=== PATIENT | male | born 1955 | race Caucasian/White ===

== ENCOUNTER → 2016-10-22 | Outpatient (REF) | payer BC ==
[~2016-10-22] MED LIST: ADVA115A INH; B COTAB3 PO; CALC-195 PO; D 202000 PO; DOCQ100C PO; GLUC500T53 PO; IBUP-1022 PO; TEST1GEL6 TD; TRAM50TA2 PO; XANA1TAB PO; ZINC25TA PO; ZINC30CA PO; ZOLO100T PO
[2016-10-25 00:06] LABS: Lyme Disease IgG/IgM Antibodie <0.91 ISR (0.00-0.90); Lyme Disease IgM Ab Quantitati <0.80 index (0.00-0.79)
== END ==
LOC: M LAB REF 17:20
PROVIDERS: ATTEND Nurse Practitioner Family
DX: F41.1 Generalized anxiety disorder (principal); R53.83 Other fatigue

== ENCOUNTER → 2017-08-26 | Outpatient (REF) | payer BC ==
[2017-08-26 20:09] LABS: TESTOSTERONE 394 NG/DL (241-827)
== END ==
LOC: M LAB REF 18:24
DX: E29.1 Testicular hypofunction (principal)
CPT/HCPCS: 84403

== ENCOUNTER 2018-07-12 13:24 | Outpatient (RCR) | payer MEDICARE ==
[~2018-07-12 13:24] MED LIST changes: -DOCQ100C PO; +DOCQ100C5 PO
== END 2018-07-25 ==
LOC: M OT 13:24
PROVIDERS: ATTEND Internal Medicine
DX: F80.9 Developmental disorder of speech and language, unspecified (principal)

== ENCOUNTER 2018-08-03 13:52 | Emergency (ER) | payer MEDICARE ==
--- NOTE | 2018-08-03 16:25 | REP ---
The brain without contrast: History: Dizziness. Comparison study September 20, 2015. Findings: Bone window settings demonstrate cervical spine fusion hardware. Bony calvarium is intact. Visualized paranasal sinuses are clear. There is a large old infarction with encephalomalacia in the distribution of the left middle cerebral artery. There is exvacuo enlargement of the lateral ventricle on the left. These changes are new when compared with the 2016 study but appear old nevertheless. No acute infarction is seen. No intracranial hemorrhage is observed. There is diffuse cerebral atrophy. No intraorbital abnormality is seen. 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 No acute infarct or hemorrhage is seen. No mass or extra-axial fluid collection noted. Electronically Signed by Govind Velasquez MD 08/03/2018 08:35 P
[2018-08-03 17:07] VITALS: BP 120/73
== END 2018-08-03 17:08 | disposition home or self-care (01) ==
LOC: M ED 13:52
DX: R42 Dizziness and giddiness (principal); G47.30 Sleep apnea, unspecified; Z86.73 Personal history of transient ischemic attack (TIA), and cerebral infarction without residual deficits; F10.20 Alcohol dependence, uncomplicated; J44.9 Chronic obstructive pulmonary disease, unspecified; Z87.891 Personal history of nicotine dependence; Z79.899 Other long term (current) drug therapy

== ENCOUNTER → 2018-08-24 | Outpatient (RCR) | payer MEDICARE ==
--- NOTE | 2018-07-27 17:50 | NUR ---
Speech-language assessment complete. ST recommended 2 x weekly. This patient's speech and language skills were assessed on 07/27/18. He presents with a severe communication impairment which impacts his receptive and expressive language skills. The clinician had limited access to any medical records or information about this patient was he was alone during the session. Based on the results of this assessment, he presents with apraxia of speech and expressive/receptive aphasia which significantly impacts his ability to communicate in his daily living environment. The clinician recommends speech therapy 2 x weekly for at least 4 weeks to focus on functional communication. Addendum: 07/27/18 at 1751 by CHANDRAKANT VERGARA Amended: Links added.
--- NOTE | 2018-08-03 14:47 | NUR ---
This patient was not feeling well during occupational therapy. The OT contacted ST to help w/communication. He was complaining of stomach pain, back pain, and leg pain. With the use of picture communication implemented by ST, the patient was able to communicate that he was having intermittent dizziness and blurred vision. OT took patient's BP and it was low. ST accompanied patient to ED for further evaluation. Patient's was contacted by the therapy department and patient's medical history on file with the therapy department was provided to ED. Addendum: 08/03/18 at 1456 by CHANDRAKANT VERGARA Amended: Links added.
--- NOTE | 2018-08-10 16:44 | NUR ---
Patient presents with mild oropharyngeal dysphagia characterized by decreased coordination of oral motor movements and effortful swallow. Patient often had to swallow 2 times to clear oral residue. However, there were no signs of aspiration/penetration during PO intake on any consistency. ST provided pt w/safe feeding strategies and recommends a regular diet w/thin liquids. ST recommends therapy for dysphagia management to maximize bolus control and patient safety during PO intake. Addendum: 08/10/18 at 1645 by CHANDRAKANT VERGARA Amended: Links added.
== END ==
LOC: M OT 07-27 12:54 → M PT 08-05 14:11 → M OT 08-10 13:00 → M ST 12:46
PROVIDERS: ATTEND Internal Medicine
DX: I69.891 Dysphagia following other cerebrovascular disease (principal)

== ENCOUNTER 2018-09-23 12:47 | Outpatient (RCR) | payer MEDICARE | END 2018-09-24 | LOC: M ST 12:47 | PROVIDERS: ATTEND Internal Medicine | DX: I63.9 Cerebral infarction, unspecified (principal) ==

== ENCOUNTER → 2018-10-09 | Outpatient (REF) | payer MEDICARE ==
[~2018-10-09] MED LIST changes: +ATOR80TA59 PO; +BACL10TA2 PO; +CIPR-249 PO; +ECOT81TA5 PO; +GABA-843 PO; +LEVA1TAB2 PO; +METO1TAB87 PO; +PANT40TA3 PO
== END ==
LOC: M LAB REF 17:07
PROVIDERS: ATTEND Physician Assistant Medical
DX: N39.0 Urinary tract infection, site not specified (principal)

== ENCOUNTER 2018-10-12 11:56 | Emergency (ER) | payer MEDICARE ==
[~2018-10-12] VITALS: Ht 167.6 cm; Wt 81.8 kg
[~2018-10-12 11:56] MED LIST changes: -ATOR80TA59 PO; -BACL10TA2 PO; -CIPR-249 PO; -ECOT81TA5 PO; -GABA-843 PO; -LEVA1TAB2 PO; -METO1TAB87 PO; -PANT40TA3 PO
[2018-10-12] MEDS ORDERED: GABA-843 PO (12:08)
[2018-10-12] MEDS ORDERED: PANT40TA3 PO (12:08)
[2018-10-12] MEDS ORDERED: ATOR80TA59 PO (12:08)
[2018-10-12] MEDS ORDERED: CIPR-249 PO (12:08)
[2018-10-12] MEDS ORDERED: ECOT81TA5 PO (12:08)
[2018-10-12] MEDS ORDERED: BACL10TA2 PO (12:08)
[2018-10-12] MEDS ORDERED: METO1TAB87 PO (12:08)
[2018-10-12 12:52] LABS: BASO # 0.1 10^3/uL (0.0-0.2); BASO % 0.7 % (0.0-1.0); EOS # 0.3 10^3/uL (0.0-0.50); EOS % 3.9 % (0.0-3.0); HEMOGLOBIN 13.6 g/dl (13.5-17.5); LYMPH # 1.7 10^3/uL (1.5-4.5); LYMPH % 22.9 % (24.0-44.0); MEAN CORPUSCULAR HEMOGLOBIN 29.6 pg (27.0-33.0); MEAN CORPUSCULAR HGB CONC 32.4 g/dl (32.0-36.5); MEAN CORPUSCULAR VOLUME 91.3 fl (80.0-96.0); MONO # 0.7 10^3/uL (0.0-0.8); MONO % 9.3 % (0.0-5.0); NEUTROPHILS # 4.7 10^3/uL (1.8-7.7); NEUTROPHILS % 62.9 % (36.0-66.0); PLATELET COUNT, AUTOMATED 249 10^3/uL (150-450); WHITE BLOOD COUNT 7.4 10^3/uL (4.0-10.0)
[2018-10-12 13:21] LABS: BLOOD UREA NITROGEN 20 MG/DL (7-18); CALCIUM LEVEL 9.3 MG/DL (8.8-10.2); CARBON DIOXIDE LEVEL 29 MEQ/L (21-32); CHLORIDE LEVEL 108 MEQ/L (98-107); CREATININE FOR GFR 0.75 MG/DL (0.70-1.30); GLOMERULAR FILTRATION RATE > 60.0 (>49); GLUCOSE, FASTING 103 MG/DL (70-100); POTASSIUM SERUM 5.3 MEQ/L (3.5-5.1); SODIUM LEVEL 141 MEQ/L (136-145)
--- NOTE | 2018-10-12 14:52 | REP ---
Scrotal ultrasound: The right testis measures 4.1 x 2.4 x 2.5 cm. The left testis measures 3.6 x 2.4-0.0 cm. There are no testicular masses. There is vascular flow in both testes. The Doppler resistive index of the parenchymal arteries in the right testis is 0.4 a.m., left testis 0.55. The right epididymal head measures 6.1 mm, and is normal size and otherwise unremarkable. The left epididymal head and left epididymis are enlarged measuring up to 31.5 mm. The with color Doppler assessment there is increased vascular flow in the left epididymis. There are small bilateral hydroceles. Impression: The left epididymis is enlarged with increased vascular flow, compatible with left epididymitis. There are small bilateral hydroceles. There are no testicular masses. There is vascular flow in both testes. Electronically Signed by Butch Riley MD 10/12/2018 02:43 P
[2018-10-12] MEDS ORDERED: LEVA1TAB2 PO (15:43)
[2018-10-12] MEDS ORDERED: LevoFLOXacin 500 MG TABLET PO ONE (15:45)
[2018-10-12 15:55] VITALS: BP 134/70
== END 2018-10-12 15:55 | disposition home or self-care (01) ==
LOC: M ED 14:13
DX: N39.0 Urinary tract infection, site not specified (principal); N45.1 Epididymitis; Z86.73 Personal history of transient ischemic attack (TIA), and cerebral infarction without residual deficits; Z87.440 Personal history of urinary (tract) infections; Z87.891 Personal history of nicotine dependence; Z79.82 Long term (current) use of aspirin; Z79.899 Other long term (current) drug therapy

== ENCOUNTER 2018-10-20 12:47 | Outpatient (RCR) | payer MEDICARE ==
[~2018-10-20 12:47] MED LIST changes: +ATOR80TA59 PO; +BACL10TA2 PO; +CIPR-249 PO; +ECOT81TA5 PO; +GABA-843 PO; +LEVA1TAB2 PO; +METO1TAB87 PO; +PANT40TA3 PO
== END 2018-10-24 | disposition home or self-care (01) ==
LOC: M ST 12:47
PROVIDERS: ATTEND Internal Medicine
DX: I63.9 Cerebral infarction, unspecified (principal)

== ENCOUNTER 2018-11-23 12:35 | Outpatient (RCR) | payer MEDICARE | END 2018-11-24 | LOC: M ST 12:35 | PROVIDERS: ATTEND Internal Medicine | DX: Z51.89 Encounter for other specified aftercare (principal); I63.9 Cerebral infarction, unspecified ==

== ENCOUNTER 2018-12-22 13:51 | Outpatient (RCR) | payer MEDICARE | END 2018-12-25 | LOC: M PT 13:51 | PROVIDERS: ATTEND Internal Medicine | DX: I63.9 Cerebral infarction, unspecified (principal) ==

== ENCOUNTER 2019-01-20 13:31 | Outpatient (RCR) | payer MEDICARE | END 2019-01-24 | LOC: M PT 13:31 | PROVIDERS: ATTEND Internal Medicine | DX: R48.2 Apraxia (principal); R47.1 Dysarthria and anarthria ==

== ENCOUNTER 2019-02-22 13:01 | Outpatient (RCR) | payer MEDICARE | END 2019-02-24 | LOC: M PT 13:01 | PROVIDERS: ATTEND Internal Medicine | DX: I69.390 Apraxia following cerebral infarction (principal); I69.322 Dysarthria following cerebral infarction ==

== ENCOUNTER 2019-03-17 13:16 | Outpatient (RCR) | payer MEDICARE | END 2019-03-26 | LOC: M PT 13:16 | PROVIDERS: ATTEND Internal Medicine | DX: R48.2 Apraxia (principal); R47.1 Dysarthria and anarthria ==

== ENCOUNTER → 2019-04-26 | Outpatient (RCR) | payer MEDICARE | LOC: M ST 04-05 12:36 → M PT 04-05 12:41 → M ST 04-07 12:50 → M PT 04-12 12:45 → M ST 04-12 12:45 → M PT 04-14 13:30 → M ST 04-18 12:50 → M PT 04-18 12:50 | PROVIDERS: ATTEND Internal Medicine | DX: R48.2 Apraxia (principal); R47.1 Dysarthria and anarthria ==

== ENCOUNTER 2019-05-26 12:59 | Outpatient (RCR) | payer MEDICARE | END 2019-05-27 | LOC: M ST 12:59 → M PT 12:59 | PROVIDERS: ATTEND Internal Medicine | DX: R48.2 Apraxia (principal); R47.1 Dysarthria and anarthria ==

== ENCOUNTER 2019-06-02 12:44 | Outpatient (RCR) | payer MEDICARE | END 2019-06-25 | LOC: M PT 12:44 → M ST 12:44 | PROVIDERS: ATTEND Internal Medicine | DX: R48.2 Apraxia (principal); R47.1 Dysarthria and anarthria ==

== ENCOUNTER → 2021-02-05 | Outpatient (REF) | payer MEDICARE ==
[~2021-02-05] MED LIST changes: +GABA-282 PO; -GABA-843 PO; +PANT40TA29 PO; -PANT40TA3 PO
== END ==
LOC: M LAB REF 16:25
PROVIDERS: ATTEND Internal Medicine
DX: R31.9 Hematuria, unspecified (principal)

== ENCOUNTER → 2022-01-24 | Outpatient (RCR) | payer MEDICARE | LOC: M PT 11:18 | PROVIDERS: ATTEND Internal Medicine | DX: I69.351 Hemiplegia and hemiparesis following cerebral infarction affecting right dominant side (principal) ==

== ENCOUNTER → 2022-11-17 | Outpatient (REF) | payer MEDICARE ==
[2022-11-17 17:21] LABS: APPEARANCE, URINE CLOUDY (CLEAR); BACTERIA, URINE AUTO 1+ (NEGATIVE); BILIRUBIN, URINE AUTO NEGATIVE (NEGATIVE); BLOOD, URINE BLOOD 3+ (NEGATIVE); COLOR, URINE AMBER (YELLOW); GLUCOSE, URINE (UA) AUTO NEGATIVE (NEGATIVE); KETONE, URINE AUTO NEGATIVE (NEGATIVE); LEUKOCYTE ESTERASE, URINE AUTO 2+ (NEGATIVE); MUCUS, URINE SMALL (NEGATIVE); NITRITE, URINE AUTO NEGATIVE (NEGATIVE); PROTEIN, URINE AUTO 2+ mg/dL (NEGATIVE); RBC, URINE AUTO TNTC /HPF (0-3); SPECIFIC GRAVITY URINE AUTO 1.023 (1.002-1.035); SQUAMOUS EPITHELIAL CELL UR AU 0 /HPF (0-6); WBC, URINE AUTO TNTC /HPF (0-3)
== END ==
LOC: M LAB REF 16:13
PROVIDERS: ATTEND Internal Medicine
DX: N39.0 Urinary tract infection, site not specified (principal)

== ENCOUNTER → 2023-04-29 | Outpatient (REF) | payer MEDICARE, MEDICAID | LOC: EEVIPCON 16:24 → M LAB REF 16:24 | PROVIDERS: ATTEND Internal Medicine | DX: N39.0 Urinary tract infection, site not specified (principal) ==